=== PATIENT | male | born 1955 ===

== ENCOUNTER 2023-09-29 21:59 | Inpatient (IN) ==
[2023-09-29] MEDS ORDERED: Naloxone 0.4 mg VIAL 0.4 mg/ml 1 ml VIAL ONE (22:07)
[2023-09-29] MEDS ORDERED: Succinylcholine 200 mg VIAL 20 mg/ml 10 ml VIAL (200 mg) ONE (22:10)
[2023-09-29] MEDS ORDERED: Propofol 10 mg/ml 100 ML BTL 1,000 MG/100 ML BTL ONE (22:10)
[2023-09-29] MEDS ORDERED: Etomidate 20 mg/10 ml 2 MG/ML 10 ml VIAL ONE ×2 (22:10→22:12)
[2023-09-29] MEDS ORDERED: Etomidate 20 mg/10 ml 2 MG/ML 10 ml VIAL IV ONE (22:30)
[2023-09-29] MEDS ORDERED: Succinylcholine 200 mg VIAL 20 mg/ml 10 ml VIAL (200 mg) IV ONE (22:30)
[2023-09-29 22:52] LABS: Hematocrit 43.4 % (38-53); Hemoglobin 14.1 g/dL (13.2-16.3); Mean Corpuscular Hemoglobin 32.4 pg (27-33); Mean Corpuscular Hgb Conc 32.5 g/dL (31-36); Mean Corpuscular Volume 99.7 fL (80-97); Red Blood Count 4.36 10^6/uL (4.06-5.63); Red Cell Distribution Width 15.6 % (12-17)
[2023-09-29] MEDS ORDERED: NS 0.9% 500 ml BAG 500 ML IV ONE (22:55)
[2023-09-29 23:00] LABS: Resp Rate 18
[2023-09-29] MEDS ORDERED: Propofol 10 mg/ml 100 ML BTL 1,000 MG/100 ML BTL IV SCH (23:00)
[2023-09-29 23:02] LABS: PCO2 Arterial 53 mmHg (35-45); PO2 Arterial 156 mmHg (80-100)
[2023-09-29 23:09] LABS: Albumin 4.4 g/dL (3.2-5.2); Albumin/Globulin Ratio 1.2 (1-3); Calcium 9.3 mg/dL (8.6-10.3); Creatinine, Serum 1.12 mg/dL (0.67-1.17); Globulin 3.7 g/dL (2-4); Total Bilirubin 0.3 mg/dL (0.2-1.0); Total Protein 8.1 g/dL (6.4-8.9); eGFR CKD-EPI 70.7 (>60)
[2023-09-29 23:10] LABS: Potassium 5.1 mmol/L (3.5-5.0)
[2023-09-29] MEDS ORDERED: Albuterol 2.5mg/3 ml (0.083%) NEB.SOLN INH ONE (23:14)
[2023-09-29 23:34] LABS: ABS Basophils 0.1 10^3/uL (0.0-0.1); ABS Lymphocytes 1.5 10^3/uL (1.0-4.8); ABS Monocytes 0.7 10^3/uL (0.0-1.1); ABS Neutrophils 10.5 10^3/uL (1.5-7.6); ABS Nucleated RBC 0.01 10^3/ul; Eosinophil % 0.1 %; Lymphocyte % 11.5 %; Mean Platelet Volume 11.1 fL (7.5-11.2); Nucleated Red Blood Cells % 0.1 %/100WBC (0.0-0.8); Platelet Count 173 10^3/uL (150-450); White Blood Count 12.8 10^3/uL (3.6-10.2)
[2023-09-29 23:51] LABS: Urine Benzodiazepine Screen None Detected (None Detect); Urine Cannabinoids Screen Presumptive Positive (None Detect); Urine Opiates Screen None Detected (None Detect)
[2023-09-30] MEDS ORDERED: Vancomycin 1,000 MG in NS 0.9% 250 ml 250 ML IVPB ONE (00:10)
[2023-09-30] MEDS ORDERED: Piperacillin/Tazobac 3.375 BAG 3.375 GM/100 ML BAG IV ONE (00:10)
[2023-09-30] MEDS ORDERED: Iodixanol (CONTRAST) 320 MG/ML 100 ML SDV IV ONE (00:18)
[2023-09-30 00:40] LABS: High Sensitivity Troponin 1 Hr 373 pg/mL (<20)
[2023-09-30] MEDS ORDERED: Vancomycin per Pharmacy 1 EA NOTE FOLLOW UP SCH (01:00)
[2023-09-30] MEDS ORDERED: Zosyn per Pharmacy NOTE FOLLOW UP SCH (01:00)
[2023-09-30 01:08] LABS: C Reactive Protein 2.08 mg/L (<8.01)
[2023-09-30 01:08] LABS: Urine Benzodiazepine Screen None Detected (None Detect); Urine Cannabinoids Screen Presumptive Positive (None Detect); Urine Opiates Screen None Detected (None Detect)
[2023-09-30 01:09] LABS: Phosphorus 3.9 mg/dL (2.5-5.0)
[2023-09-30 01:26] LABS: Urine Buprenorphine Screen None Detected (None Detect); Urine Fentanyl Screen Presumptive Positive (None Detect); Urine Hydrocodone Screen None Detected (None Detect)
[2023-09-30] MEDS: Pantoprazole VIAL 40 MG VIAL IV SCH ×2 (02:20→08:50)
[2023-09-30] MEDS: Propofol 10 mg/ml 100 ML BTL 1,000 MG/100 ML BTL IV SCH ×7 (02:20→20:46)
[2023-09-30] MEDS ORDERED: Albuterol HFA INHALER 8 gm MDI INH PRN (02:58)
[2023-09-30] MEDS ORDERED: Enalaprilat IV 1.25 mg/ml 1 ml VIAL (1.25 MG) IV ONE (03:07)
[2023-09-30] MEDS: Chlorhexidine MOUTHWASH 0.12% 15 ML UDC TOPICAL SCH ×6 (03:35→22:20)
[2023-09-30 03:44] LABS: PCO2 Arterial 44 mmHg (35-45); PO2 Arterial 91 mmHg (80-100)
[2023-09-30 03:59] LABS: High Sensitivity Troponin 3 Hr 847 pg/mL (<20)
[2023-09-30] MEDS ORDERED: Labetalol IV 5 MG/ML 20 ml VIAL IV PUSH ONE ×2 (04:05→20:37)
[2023-09-30] MEDS ORDERED: Midazolam 5 mg/5 ml VIAL 1 mg/ml 5 ml VIAL (5 mg) IV SLOW PU ONE (04:08)
[2023-09-30] MEDS ORDERED: ZOSYN 3.375 GM Q8H per EXTENDED INFUSION IV SCH (05:00)
[2023-09-30 05:09] LABS: ABS Lymphocytes 1.4 10^3/uL (1.0-4.8); ABS Monocytes 0.2 10^3/uL (0.0-1.1); ABS Neutrophils 5.7 10^3/uL (1.5-7.6); ABS Nucleated RBC 0.01 10^3/ul; Eosinophil % 0.1 %; Hematocrit 42.8 % (38-53); Hemoglobin 14.3 g/dL (13.2-16.3); Lymphocyte % 18.6 %; Mean Corpuscular Hemoglobin 32.7 pg (27-33); Mean Corpuscular Hgb Conc 33.3 g/dL (31-36); Mean Corpuscular Volume 98.1 fL (80-97); Mean Platelet Volume 10.9 fL (7.5-11.2); Nucleated Red Blood Cells % 0.1 %/100WBC (0.0-0.8); Platelet Count 166 10^3/uL (150-450); Red Blood Count 4.36 10^6/uL (4.06-5.63); Red Cell Distribution Width 15.5 % (12-17); White Blood Count 7.3 10^3/uL (3.6-10.2)
[2023-09-30] MEDS ORDERED: Meperidine 50 mg/ml SYRINGE 1 ml IV ONE (05:12)
[2023-09-30 05:31] LABS: Albumin 3.8 g/dL (3.2-5.2); Albumin/Globulin Ratio 1.2 (1-3); Calcium 8.2 mg/dL (8.6-10.3); Creatinine, Serum 0.92 mg/dL (0.67-1.17); Globulin 3.2 g/dL (2-4); Magnesium 1.6 mg/dL (1.9-2.7); Potassium 3.9 mmol/L (3.5-5.0); Total Bilirubin 0.7 mg/dL (0.2-1.0); eGFR CKD-EPI 89.5 (>60)
[2023-09-30 06:37] LABS: Urine Appearance Cloudy; Urine Bacteria 1+ (Absent); Urine Bilirubin Negative (Negative); Urine Blood 1+ (Negative); Urine Color Yellow; Urine Glucose 1+(50 mg/dL) (Negative); Urine Ketones Negative (Negative); Urine Nitrite Negative (Negative); Urine Protein 1+(30 mg/dL) (Negative); Urine Red Blood Cell Trace(0-2/hpf) (Absent); Urine Specific Gravity 1.014 (1.002-1.030); Urine Squamous Epithelial Cell Present (Absent); Urine Urobilinogen Negative (Negative); Urine White Blood Cell Absent (Absent)
[2023-09-30] MEDS ORDERED: Cyclosporine 0.05% OPHTH (NF) 0.4 ML VIAL BOTH EYES SCH (09:00)
[2023-09-30] MEDS ORDERED: Magnesium Sulf 4 GM/100 ML IV 4,000 MG/100 ML BAG IVPB ONE (12:00)
[2023-09-30 12:38] LABS: CKMB ng/mL 10.7 ng/mL (0.6-6.3)
[2023-09-30] MEDS: niCARdipine 0.1MG/ML IVPREMIX 20 MG/200 ML BAG IV SCH (15:24)
[2023-09-30 17:11] LABS: High Sensitivity Troponin 3 Hr 1070 pg/mL (<20)
[2023-09-30] MEDS ORDERED: Mometasone 220 MCG MDI INH SCH (19:00)
[2023-09-30] MEDS: Cyclosporine 0.05% OPHTH (NF) 0.4 ML VIAL BOTH EYES SCH (21:26)
[2023-09-30] MEDS: Enoxaparin 40 MG/0.4 ML SYR SUBCUT SCH (22:20)
[2023-10-01] MEDS: Propofol 10 mg/ml 100 ML BTL 1,000 MG/100 ML BTL IV SCH ×7 (00:14→22:48)
[2023-10-01] MEDS ORDERED: Midazolam 5 mg/5 ml VIAL 1 mg/ml 5 ml VIAL (5 mg) IV SLOW PU ONE ×2 (00:24→22:50)
[2023-10-01] MEDS ORDERED: Labetalol IV 5 MG/ML 20 ml VIAL IV PUSH ONE (00:26)
[2023-10-01] MEDS: Chlorhexidine MOUTHWASH 0.12% 15 ML UDC TOPICAL SCH ×6 (02:45→23:54)
[2023-10-01] MEDS: niCARdipine 0.1MG/ML IVPREMIX 20 MG/200 ML BAG IV SCH ×2 (04:07→08:10)
[2023-10-01 05:00] LABS: Potassium 4.6 mmol/L (3.5-5.0)
[2023-10-01 05:01] LABS: Calcium 8.8 mg/dL (8.6-10.3); Creatinine, Serum 0.87 mg/dL (0.67-1.17); eGFR CKD-EPI 92.8 (>60)
[2023-10-01 07:26] LABS: Giant Platelets Present; Hematocrit 42.1 % (38-53); Hemoglobin 13.9 g/dL (13.2-16.3); Large Platelets Present; Mean Corpuscular Hemoglobin 32.3 pg (27-33); Mean Platelet Volume 11.7 fL (7.5-11.2); Platelet Count 154 10^3/uL (150-450); Red Cell Distribution Width 15.6 % (12-17); White Blood Count 17.5 10^3/uL (3.6-10.2)
[2023-10-01] MEDS: Pantoprazole VIAL 40 MG VIAL IV SCH (08:34)
[2023-10-01] MEDS ORDERED: Lorazepam PYXIS KEY PRN (08:40)
[2023-10-01] MEDS ORDERED: Sulfur Hexaflouride MICROSPHR 25 MG VIAL ONE (09:02)
[2023-10-01] MEDS: LORazepam 2 mg VIAL 1 ml IV PUSH PRN ×6 (09:17→22:22)
[2023-10-01] MEDS: Cyclosporine 0.05% OPHTH (NF) 0.4 ML VIAL BOTH EYES SCH ×2 (10:52→20:41)
[2023-10-01] MEDS ORDERED: Zosyn per Pharmacy NOTE FOLLOW UP PRN (14:31)
[2023-10-01] MEDS ORDERED: Zosyn 3.375 gm X 1 dose, then dose per Pharmacy IV ONE (15:00)
[2023-10-01] MEDS: ZOSYN 3.375 GM Q8H per EXTENDED INFUSION IV SCH (17:33)
[2023-10-01] MEDS ORDERED: Acetaminophen IV 1 GM/100ML 1,000 MG/100 ML BAG IV ONE (17:46)
[2023-10-01] MEDS: Acetaminophen IV 1 GM/100ML 1,000 MG/100 ML BAG IV PRN (17:47)
[2023-10-01] MEDS: Enoxaparin 40 MG/0.4 ML SYR SUBCUT SCH (23:54)
[2023-10-02] MEDS: Acetaminophen IV 1 GM/100ML 1,000 MG/100 ML BAG IV PRN ×3 (01:15→21:14)
[2023-10-02] MEDS ORDERED: Labetalol IV 5 MG/ML 20 ml VIAL IV PUSH ONE ×2 (01:33→21:17)
[2023-10-02] MEDS: ZOSYN 3.375 GM Q8H per EXTENDED INFUSION IV SCH ×3 (01:50→17:55)
[2023-10-02] MEDS: Propofol 10 mg/ml 100 ML BTL 1,000 MG/100 ML BTL IV SCH ×5 (03:58→21:42)
[2023-10-02 04:36] LABS: Hematocrit 38.2 % (38-53); Hemoglobin 12.9 g/dL (13.2-16.3); Mean Corpuscular Hemoglobin 32.6 pg (27-33); Mean Corpuscular Hgb Conc 33.8 g/dL (31-36); Mean Corpuscular Volume 96.6 fL (80-97); Mean Platelet Volume 11.3 fL (7.5-11.2); Platelet Count 134 10^3/uL (150-450); Red Blood Count 3.95 10^6/uL (4.06-5.63); White Blood Count 15.3 10^3/uL (3.6-10.2)
[2023-10-02] MEDS: Chlorhexidine MOUTHWASH 0.12% 15 ML UDC TOPICAL SCH ×5 (04:57→21:12)
[2023-10-02 05:01] LABS: ALT 24 U/L (7-52); Albumin 3.3 g/dL (3.2-5.2); Albumin/Globulin Ratio 0.9 (1-3); Alkaline Phosphatase 66 U/L (35-149); Anion Gap 5 mmol/L (2-16); Blood Urea Nitrogen 17 mg/dL (6-24); CO2 Carbon Dioxide 28 mmol/L (22-32); Calcium 8.5 mg/dL (8.6-10.3); Chloride 103 mmol/L (101-111); Creatinine, Serum 0.85 mg/dL (0.67-1.17); Globulin 3.5 g/dL (2-4); Glucose 140 mg/dL (70-100); Sodium 136 mmol/L (135-145); Total Protein 6.8 g/dL (6.4-8.9); eGFR CKD-EPI 93.5 (>60)
[2023-10-02] MEDS: hydrALAZINE 20 mg/ml 1 ML Vial IV IV SLOW PU PRN ×3 (05:40→23:21)
[2023-10-02] MEDS: fentaNYL 100 mcg/2 ml 50 MCG/ML VIAL IV SLOW PU PRN ×4 (07:51→23:17)
[2023-10-02] MEDS: Cyclosporine 0.05% OPHTH (NF) 0.4 ML VIAL BOTH EYES SCH ×2 (08:00→21:21)
[2023-10-02] MEDS: Pantoprazole VIAL 40 MG VIAL IV SCH (08:00)
[2023-10-02 12:33] LABS: Magnesium 2.1 mg/dL (1.9-2.7)
[2023-10-02] MEDS ORDERED: fentaNYL 100 mcg/2 ml 50 MCG/ML VIAL IV SLOW PU PRN (16:34)
[2023-10-02] MEDS: LORazepam 2 mg VIAL 1 ml IV PUSH PRN (20:38)
[2023-10-02] MEDS: Enoxaparin 40 MG/0.4 ML SYR SUBCUT SCH (21:12)
[2023-10-03] MEDS: Chlorhexidine MOUTHWASH 0.12% 15 ML UDC TOPICAL SCH ×7 (00:48→23:38)
[2023-10-03] MEDS: Propofol 10 mg/ml 100 ML BTL 1,000 MG/100 ML BTL IV SCH ×7 (01:17→22:46)
[2023-10-03] MEDS: fentaNYL 100 mcg/2 ml 50 MCG/ML VIAL IV SLOW PU PRN ×8 (01:18→22:54)
[2023-10-03] MEDS: ZOSYN 3.375 GM Q8H per EXTENDED INFUSION IV SCH ×2 (03:05→10:50)
[2023-10-03] MEDS: LORazepam 2 mg VIAL 1 ml IV PUSH PRN ×3 (03:07→22:54)
[2023-10-03] MEDS: hydrALAZINE 20 mg/ml 1 ML Vial IV IV SLOW PU PRN (03:07)
[2023-10-03 04:37] LABS: Hemoglobin 13.3 g/dL (13.2-16.3); Mean Corpuscular Hemoglobin 32.2 pg (27-33); Mean Corpuscular Hgb Conc 33.3 g/dL (31-36); Mean Corpuscular Volume 96.9 fL (80-97); Mean Platelet Volume 10.7 fL (7.5-11.2); Platelet Count 156 10^3/uL (150-450); Red Blood Count 4.13 10^6/uL (4.06-5.63); Red Cell Distribution Width 15.2 % (12-17); White Blood Count 14.6 10^3/uL (3.6-10.2)
[2023-10-03 05:44] LABS: Potassium 3.9 mmol/L (3.5-5.0)
[2023-10-03 05:45] LABS: Albumin 3.4 g/dL (3.2-5.2); Albumin/Globulin Ratio 0.9 (1-3); Calcium 8.7 mg/dL (8.6-10.3); Creatinine, Serum 0.75 mg/dL (0.67-1.17); Globulin 3.8 g/dL (2-4); Magnesium 1.9 mg/dL (1.9-2.7); Total Protein 7.2 g/dL (6.4-8.9); eGFR CKD-EPI 97.1 (>60)
[2023-10-03] MEDS: Pantoprazole VIAL 40 MG VIAL IV SCH (08:34)
[2023-10-03] MEDS: Cyclosporine 0.05% OPHTH (NF) 0.4 ML VIAL BOTH EYES SCH ×2 (08:34→21:11)
[2023-10-03] MEDS ORDERED: Potassium Chloride LIQUID 20 MEQ/15 ML LIQUID NG TUBE ONE (11:40)
[2023-10-03] MEDS ORDERED: Magnesium Sulfate 2 gm BAG 2 GM/50 ML BAG IVPB ONE (11:40)
[2023-10-03] MEDS ORDERED: Atropine 1% (ORAL/SL) 15 ML BTL SL PRN (12:20)
[2023-10-03] MEDS: Senna TAB 8.6 mg TAB NG TUBE SCH (13:31)
[2023-10-03] MEDS ORDERED: Cefepime 2 GM in Dextrose 2 GM/50 ML BAG IV SCH (18:00)
[2023-10-03] MEDS: Acetaminophen IV 1 GM/100ML 1,000 MG/100 ML BAG IV PRN (18:25)
[2023-10-03] MEDS: Enoxaparin 40 MG/0.4 ML SYR SUBCUT SCH (21:10)
[2023-10-04] MEDS: Meropenem 1 GM PREMIX(*) 1 GM/50 ML BAG IV SCH ×3 (01:40→16:43)
[2023-10-04] MEDS: Propofol 10 mg/ml 100 ML BTL 1,000 MG/100 ML BTL IV SCH ×5 (02:22→21:50)
[2023-10-04] MEDS: Acetaminophen IV 1 GM/100ML 1,000 MG/100 ML BAG IV PRN ×2 (02:58→12:00)
[2023-10-04] MEDS: Chlorhexidine MOUTHWASH 0.12% 15 ML UDC TOPICAL SCH ×5 (04:33→19:18)
[2023-10-04 04:50] LABS: ABS Basophils 0.2 10^3/uL (0.0-0.1); ABS Eosinophils 0.1 10^3/uL (0.0-0.5); ABS Lymphocytes 2.8 10^3/uL (1.0-4.8); ABS Monocytes 1.5 10^3/uL (0.0-1.1); ABS Nucleated RBC 0.01 10^3/ul; Hematocrit 38.2 % (38-53); Lymphocyte % 22.3 %; Mean Corpuscular Hemoglobin 32.7 pg (27-33); Mean Corpuscular Volume 96.3 fL (80-97); Mean Platelet Volume 10.4 fL (7.5-11.2); Nucleated Red Blood Cells % 0.1 %/100WBC (0.0-0.8); Platelet Count 183 10^3/uL (150-450); Red Blood Count 3.97 10^6/uL (4.06-5.63); White Blood Count 12.5 10^3/uL (3.6-10.2)
[2023-10-04 05:06] LABS: Potassium 4.1 mmol/L (3.5-5.0)
[2023-10-04 05:07] LABS: Calcium 8.8 mg/dL (8.6-10.3); Creatinine, Serum 0.61 mg/dL (0.67-1.17); Magnesium 2.1 mg/dL (1.9-2.7); eGFR CKD-EPI 103.3 (>60)
[2023-10-04] MEDS: fentaNYL 100 mcg/2 ml 50 MCG/ML VIAL IV SLOW PU PRN ×2 (05:18→09:25)
[2023-10-04] MEDS: LORazepam 2 mg VIAL 1 ml IV PUSH PRN (05:19)
[2023-10-04] MEDS ORDERED: Ondansetron 4 mg VIAL 2 MG/ML 2 ml VIAL IV PRN (08:03)
[2023-10-04] MEDS: Senna TAB 8.6 mg TAB NG TUBE SCH (09:24)
[2023-10-04] MEDS: Pantoprazole VIAL 40 MG VIAL IV SCH (09:25)
[2023-10-04] MEDS: Polyethylene Glycol 3350 17 GM PACKET NG TUBE SCH (09:25)
[2023-10-04] MEDS: Cyclosporine 0.05% OPHTH (NF) 0.4 ML VIAL BOTH EYES SCH ×2 (09:26→21:09)
[2023-10-04] MEDS: Dexmedetomidine 1,000 MCG in NS 0.9% 250 ml 240 ML IV SCH (11:33)
[2023-10-04] MEDS: Enoxaparin 40 MG/0.4 ML SYR SUBCUT SCH (21:10)
[2023-10-05] MEDS: Meropenem 1 GM PREMIX(*) 1 GM/50 ML BAG IV SCH ×3 (00:30→16:59)
[2023-10-05] MEDS: Chlorhexidine MOUTHWASH 0.12% 15 ML UDC TOPICAL SCH ×4 (00:30→11:37)
[2023-10-05] MEDS: Dexmedetomidine 1,000 MCG in NS 0.9% 250 ml 240 ML IV SCH ×2 (01:52→11:42)
[2023-10-05 04:51] LABS: ABS Basophils 0.1 10^3/uL (0.0-0.1); ABS Eosinophils 0.2 10^3/uL (0.0-0.5); ABS Lymphocytes 3.1 10^3/uL (1.0-4.8); ABS Monocytes 1.2 10^3/uL (0.0-1.1); ABS Neutrophils 7.8 10^3/uL (1.5-7.6); ABS Nucleated RBC 0.03 10^3/ul; Eosinophil % 1.7 %; Hematocrit 38.3 % (38-53); Hemoglobin 12.7 g/dL (13.2-16.3); Lymphocyte % 24.7 %; Mean Corpuscular Hemoglobin 32.1 pg (27-33); Mean Corpuscular Hgb Conc 33.2 g/dL (31-36); Mean Corpuscular Volume 96.9 fL (80-97); Mean Platelet Volume 10.1 fL (7.5-11.2); Nucleated Red Blood Cells % 0.3 %/100WBC (0.0-0.8); Platelet Count 215 10^3/uL (150-450); Red Blood Count 3.95 10^6/uL (4.06-5.63); Red Cell Distribution Width 15.1 % (12-17); White Blood Count 12.5 10^3/uL (3.6-10.2)
[2023-10-05] MEDS: Propofol 10 mg/ml 100 ML BTL 1,000 MG/100 ML BTL IV SCH (05:04)
[2023-10-05 05:17] LABS: Potassium 4.2 mmol/L (3.5-5.0)
[2023-10-05 05:18] LABS: Calcium 8.9 mg/dL (8.6-10.3); Creatinine, Serum 0.69 mg/dL (0.67-1.17); eGFR CKD-EPI 99.6 (>60)
[2023-10-05] MEDS: Polyethylene Glycol 3350 17 GM PACKET NG TUBE SCH (09:13)
[2023-10-05] MEDS: Pantoprazole VIAL 40 MG VIAL IV SCH (09:14)
[2023-10-05] MEDS: Senna TAB 8.6 mg TAB NG TUBE SCH (09:14)
[2023-10-05] MEDS: Cyclosporine 0.05% OPHTH (NF) 0.4 ML VIAL BOTH EYES SCH (09:14)
[2023-10-05] MEDS: Acetaminophen IV 1 GM/100ML 1,000 MG/100 ML BAG IV PRN (17:35)
[2023-10-05] MEDS: Lidocaine PATCH 5% PATCH TRANSDERM SCH (18:03)
[2023-10-05] MEDS: Enoxaparin 40 MG/0.4 ML SYR SUBCUT SCH (20:50)
[2023-10-06] MEDS: Meropenem 1 GM PREMIX(*) 1 GM/50 ML BAG IV SCH ×3 (00:29→18:15)
[2023-10-06] MEDS ORDERED: Morphine 4 MG/ML VIAL (1 ml) IV ONE (00:42)
[2023-10-06] MEDS ORDERED: Morphine 4 MG/ML VIAL (1 ml) ONE (00:45)
[2023-10-06 05:34] LABS: ABS Basophils 0.1 10^3/uL (0.0-0.1); ABS Eosinophils 0.2 10^3/uL (0.0-0.5); ABS Lymphocytes 3.4 10^3/uL (1.0-4.8); ABS Monocytes 1.3 10^3/uL (0.0-1.1); ABS Neutrophils 5.5 10^3/uL (1.5-7.6); ABS Nucleated RBC 0.01 10^3/ul; Eosinophil % 1.5 %; Hematocrit 36.7 % (38-53); Hemoglobin 12.5 g/dL (13.2-16.3); Lymphocyte % 32.2 %; Mean Corpuscular Hemoglobin 32.5 pg (27-33); Mean Corpuscular Hgb Conc 34.2 g/dL (31-36); Mean Corpuscular Volume 95.2 fL (80-97); Mean Platelet Volume 9.6 fL (7.5-11.2); Nucleated Red Blood Cells % 0.1 %/100WBC (0.0-0.8); Platelet Count 245 10^3/uL (150-450); Red Blood Count 3.85 10^6/uL (4.06-5.63); Red Cell Distribution Width 14.9 % (12-17); White Blood Count 10.5 10^3/uL (3.6-10.2)
[2023-10-06 06:25] LABS: Calcium 8.9 mg/dL (8.6-10.3); Creatinine, Serum 0.75 mg/dL (0.67-1.17); Potassium 3.6 mmol/L (3.5-5.0); eGFR CKD-EPI 97.1 (>60)
[2023-10-06] MEDS: Lidocaine PATCH 5% PATCH TRANSDERM SCH (08:31)
[2023-10-06] MEDS: Polyethylene Glycol 3350 17 GM PACKET NG TUBE SCH (08:32)
[2023-10-06] MEDS: Senna TAB 8.6 mg TAB PO SCH (08:32)
[2023-10-06] MEDS ORDERED: Potassium Chloride LIQUID 20 MEQ/15 ML LIQUID PO ONE (08:47)
[2023-10-06] MEDS: Polyethylene Glycol 3350 17 GM PACKET PO SCH (09:31)
[2023-10-06] MEDS: Enoxaparin 40 MG/0.4 ML SYR SUBCUT SCH (21:28)
[2023-10-07] MEDS: Meropenem 1 GM PREMIX(*) 1 GM/50 ML BAG IV SCH ×3 (01:09→16:54)
[2023-10-07] MEDS: Polyethylene Glycol 3350 17 GM PACKET PO SCH (08:36)
[2023-10-07] MEDS: Senna TAB 8.6 mg TAB PO SCH (08:37)
[2023-10-07] MEDS: Lidocaine PATCH 5% PATCH TRANSDERM SCH ×2 (08:38→12:15)
[2023-10-07] MEDS: Enoxaparin 40 MG/0.4 ML SYR SUBCUT SCH (21:44)
[2023-10-08] MEDS: Meropenem 1 GM PREMIX(*) 1 GM/50 ML BAG IV SCH (00:39)
[2023-10-08 05:00] LABS: ABS Eosinophils 0.1 10^3/uL (0.0-0.5); ABS Lymphocytes 3.3 10^3/uL (1.0-4.8); ABS Monocytes 1.1 10^3/uL (0.0-1.1); ABS Neutrophils 5.8 10^3/uL (1.5-7.6); Eosinophil % 1.2 %; Hematocrit 38.8 % (38-53); Hemoglobin 13.2 g/dL (13.2-16.3); Lymphocyte % 32.1 %; Mean Corpuscular Hemoglobin 32.7 pg (27-33); Mean Corpuscular Volume 96.2 fL (80-97); Mean Platelet Volume 9.3 fL (7.5-11.2); Platelet Count 340 10^3/uL (150-450); Red Blood Count 4.03 10^6/uL (4.06-5.63); Red Cell Distribution Width 14.7 % (12-17); White Blood Count 10.4 10^3/uL (3.6-10.2)
[2023-10-08 06:36] LABS: Anion Gap 5 mmol/L (2-16); Blood Urea Nitrogen 20 mg/dL (6-24); CO2 Carbon Dioxide 28 mmol/L (22-32); Calcium 8.9 mg/dL (8.6-10.3); Chloride 104 mmol/L (101-111); Creatinine, Serum 0.69 mg/dL (0.67-1.17); Glucose 115 mg/dL (70-100); Sodium 137 mmol/L (135-145); eGFR CKD-EPI 99.6 (>60)
[2023-10-08] MEDS: Lidocaine PATCH 5% PATCH TRANSDERM SCH ×2 (09:20→09:25)
[2023-10-08] MEDS: Senna TAB 8.6 mg TAB PO SCH (09:20)
[2023-10-08] MEDS: Polyethylene Glycol 3350 17 GM PACKET PO SCH (09:21)
[2023-10-08] MEDS ORDERED: Senna TAB 8.6 mg TAB PO PRN (10:06)
[2023-10-08] MEDS: Enoxaparin 40 MG/0.4 ML SYR SUBCUT SCH (23:09)
[2023-10-09 03:51] LABS: ABS Basophils 0.1 10^3/uL (0.0-0.1); ABS Eosinophils 0.1 10^3/uL (0.0-0.5); ABS Neutrophils 6.4 10^3/uL (1.5-7.6); ABS Nucleated RBC 0.02 10^3/ul; Hematocrit 38.4 % (38-53); Hemoglobin 12.9 g/dL (13.2-16.3); Lymphocyte % 34.5 %; Mean Corpuscular Hemoglobin 32.3 pg (27-33); Mean Corpuscular Hgb Conc 33.7 g/dL (31-36); Mean Corpuscular Volume 95.8 fL (80-97); Mean Platelet Volume 9.2 fL (7.5-11.2); Nucleated Red Blood Cells % 0.1 %/100WBC (0.0-0.8); Platelet Count 393 10^3/uL (150-450); Red Blood Count 4.01 10^6/uL (4.06-5.63); Red Cell Distribution Width 14.5 % (12-17); White Blood Count 11.6 10^3/uL (3.6-10.2)
[2023-10-09 04:07] LABS: Calcium 8.8 mg/dL (8.6-10.3); Creatinine, Serum 0.7 mg/dL (0.67-1.17); Potassium 4.2 mmol/L (3.5-5.0); eGFR CKD-EPI 99.1 (>60)
[2023-10-09] MEDS: Polyethylene Glycol 3350 17 GM PACKET PO SCH ×3 (08:29→21:08)
[2023-10-09] MEDS: Senna TAB 8.6 mg TAB PO SCH (08:31)
[2023-10-09] MEDS: Lidocaine PATCH 5% PATCH TRANSDERM SCH (08:31)
[2023-10-09] MEDS ORDERED: Lactulose 30 ml UDC PO ONE (12:52)
[2023-10-09] MEDS: Enoxaparin 40 MG/0.4 ML SYR SUBCUT SCH (21:06)
[2023-10-10] MEDS ORDERED: VASOPRESSIN IVPREMIX BTL 40 UNIT/100 ML BTL IV ONE (05:07)
[2023-10-10 08:09] VITALS: BP 119/72
[2023-10-10] MEDS: Polyethylene Glycol 3350 17 GM PACKET PO SCH (08:12)
[2023-10-10] MEDS: Lidocaine PATCH 5% PATCH TRANSDERM SCH (08:12)
[2023-10-10] MEDS: Senna TAB 8.6 mg TAB PO SCH (08:14)
== END 2023-10-10 11:00 | DRG 812 ==
LOC: ED 21:59 → EDHOLD 09-30 00:13 → SUATTDRO 09-30 00:13 → ICU 09-30 01:15 → MEDTELE 10-10 04:16
PROVIDERS: ADMIT Internal Medicine; ATTEND Student in an Organized Health Care Education/Training Program